=== PATIENT | female | born 1935 | race Caucasian/White ===

== ENCOUNTER 2017-10-26 06:41 | Day surgery (SDC) | payer OTHER, MEDICARE ==
[2017-10-26] MEDS ORDERED: PROPOFOL 20 ML (07:50)
[2017-10-26] MEDS ORDERED: MIDAZOLAM 1 MG/ML 2 ML INJ (07:50)
[2017-10-26] MEDS ORDERED: LIDOCAINE 2% (SDV) 5 ML INJ (07:50)
[2017-10-26] MEDS ORDERED: FENTAnyl 50 MCG/ML VIAL (07:50)
[2017-10-26] MEDS ORDERED: PHENYLephrine (100 MCG/ML) 5ML SYG (07:51)
== END 2017-10-26 15:13 | disposition home or self-care (01) ==
LOC: GIL 06:41
DX: K31.7 Polyp of stomach and duodenum (principal); D12.0 Benign neoplasm of cecum; D12.3 Benign neoplasm of transverse colon; I12.9 Hypertensive chronic kidney disease with stage 1 through stage 4 chronic kidney disease, or unspecified chronic kidney disease; N18.9 Chronic kidney disease, unspecified; E11.9 Type 2 diabetes mellitus without complications; Z86.73 Personal history of transient ischemic attack (TIA), and cerebral infarction without residual deficits; I50.9 Heart failure, unspecified
CPT/HCPCS: 43239

== ENCOUNTER 2017-11-03 10:53 | Day surgery (SDC) | payer OTHER ==
[2017-11-03] MEDS ORDERED: LIDOCAINE 2% (SDV) 5 ML INJ (13:02)
[2017-11-03] MEDS ORDERED: PROPOFOL 40 ML (13:02)
[2017-11-03] MEDS ORDERED: GLUCAGON 1 MG INJ (13:07)
[2017-11-03] MEDS ORDERED: EPINEPHrine 0.1 MG/ML SYG (14:57)
== END 2017-11-04 09:14 | disposition home or self-care (01) ==
LOC: SUR 11-04 09:14 → SDS 10:53 → GIL 10:53
DX: K31.7 Polyp of stomach and duodenum (principal); E03.9 Hypothyroidism, unspecified; I50.9 Heart failure, unspecified
CPT/HCPCS: 43239

== ENCOUNTER 2017-11-10 10:39 | Day surgery (SDC) | payer BC, OTHER ==
[2017-11-10] MEDS ORDERED: PROPOFOL 20 ML (10:53)
[2017-11-10] MEDS ORDERED: EPHEDrine SULFATE 50 MG/5 ML SYG IV (11:00)
[2017-11-10] MEDS ORDERED: DIPHENHYDRAMINE 50 MG INJ IV (11:00)
[2017-11-10] MEDS ORDERED: MIDAZOLAM 1 MG/ML 2 ML INJ IV (11:00)
[2017-11-10] MEDS ORDERED: LABETALOL HCL 20MG INJ IV (11:00)
[2017-11-10] MEDS ORDERED: OXYCODONE/ACETAMINOPHEN (5/325) TAB PO ×2 (11:00)
[2017-11-10] MEDS ORDERED: MEPERIDINE 25 MG INJ IV (11:00)
[2017-11-10] MEDS ORDERED: FENTAnyl 50 MCG/ML VIAL IV ×3 (11:00)
[2017-11-10] MEDS ORDERED: hydrALAzine 20 MG INJ IV (11:00)
[2017-11-10] MEDS ORDERED: METOCLOPRAMIDE 10 MG INJ IV (11:00)
[2017-11-10] MEDS ORDERED: ONDANSETRON 4 MG INJ IV (11:00)
[2017-11-10] MEDS ORDERED: EPINEPHrine 0.1 MG/ML SYG (12:26)
== END 2017-11-10 12:08 | disposition home or self-care (01) ==
LOC: GIL 10:39
DX: K31.811 Angiodysplasia of stomach and duodenum with bleeding (principal); Q27.33 Arteriovenous malformation of digestive system vessel; E03.9 Hypothyroidism, unspecified; E11.9 Type 2 diabetes mellitus without complications; I10 Essential (primary) hypertension; I50.9 Heart failure, unspecified
CPT/HCPCS: 43255; 82962

== ENCOUNTER 2018-02-12 13:29 | Day surgery (SDC) | payer OTHER ==
[~2018-02-12 13:29] MED LIST: LIDOCAINE 2% (SDV) 5 ML INJ; PROPOFOL 200 MG INJ
[2018-02-12 17:47] LABS: AADO2 Arterial 323.1 mmHg (7.0-24.0); Allen Test ACCEPTAB; Arterial Base Excess 1.6 mmol/L (-3.0-3); Arterial Blood Gas Oxygen Sat 98.4 mmHG (95.0-100.0); Arterial COHb 0.8 % (0.0-3.0); Arterial Fraction of Oxyhgb 97.2 % (93.0-99.0); Arterial HCO3 26.7 mmol/L (22.0-26.0); Arterial MetHb 0.4 % (0.0-1.5); Arterial Total Hemglobin 9.1 g/dl (12.0-18.0); Arterial pCO2 44.3 mmhg (35-45); MODE VENT - AC; Site Right Radial
== END 2018-02-12 18:57 | disposition other institution (70) ==
LOC: ZBAR 13:29 → SDS 16:00
DX: K92.1 Melena (principal); Q27.33 Arteriovenous malformation of digestive system vessel; K31.7 Polyp of stomach and duodenum; E11.9 Type 2 diabetes mellitus without complications; Z79.4 Long term (current) use of insulin; I50.30 Unspecified diastolic (congestive) heart failure; I12.9 Hypertensive chronic kidney disease with stage 1 through stage 4 chronic kidney disease, or unspecified chronic kidney disease; N18.9 Chronic kidney disease, unspecified; E03.9 Hypothyroidism, unspecified; Z93.0 Tracheostomy status; Z93.1 Gastrostomy status
CPT/HCPCS: 36600; 82803; 94002